=== PATIENT | female | born 1990 | race Caucasian/White ===

== ENCOUNTER 2022-09-14 23:44 | Emergency (ER) | payer SELFPAY ==
[~2022-09-14] VITALS: Ht 160 cm; Wt 81.6 kg
[2022-09-15 00:15] VITALS: BP 130/78
== END 2022-09-15 03:06 | disposition home or self-care (01) ==
LOC: ER 23:47
DX: F10.129 Alcohol abuse with intoxication, unspecified (principal); Y90.8 Blood alcohol level of 240 mg/100 ml or more
CPT/HCPCS: 36415; G0480